=== PATIENT | female | born 1990 | race Caucasian/White ===

== ENCOUNTER 2016-04-04 17:31 | Emergency (ER) | payer MEDICAID ==
--- NOTE | 2016-04-04 21:47 | ED Physician Chart ---
Chief Complaint/HPI - Patient Information Date Seen:: 04/04/16 Time Seen:: 21:40 Chief Complaint:: dysuria, abdominal pain History of Present Illness:: location: lower abdomen quality: sharp pain severity: mild duration: 2-3 days context: pt with onset of lower abdominal pain few days ago. also reports some hematuria. no fever, no flank pain. says this it the first time this has happened. has two children. last child born 2 years ago. mod factors: none assoc s/s: none hx from pt Allergies:: Allergies Allergy/AdvReac Type Severity Reaction Status Date / Time No Known Allergies Allergy Verified 04/04/16 18:10 Vitals:: Vital Signs - 8 hr 04/04/16 17:31 Temp 97.0 F HR 77 RR 16 BP 123/76 O2 Sat % 99 Historian:: Patient Review:: Nurse's Note Reviewed Review of Systems - Review of Systems General/Constitutional: No fever, No chills, No weight loss, No weakness, No diaphoresis, No edema, No loss of appetite Skin: No skin lesions, No rash, No bruising Head: No headache, No light-headedness Eyes: No loss of vision, No pain, No diplopia ENT: No earache, No nasal drainage, No sore throat, No tinnitus Neck: No neck pain, No swelling, No thyromegaly, No stiffness, No mass noted Cardio Vascular: No chest pain, No palpitations, No PND, No orthopnea, No edema Pulmonary: No SOB, No cough, No sputum, No wheezing GI: No nausea, No vomiting, No diarrhea, No pain, No melena, No hematochezia, No constipation, No hematemesis G/U: Dysuria, No frequency, Hematuria Musculoskeletal: No bone or joint pain, No back pain, No muscle pain Endocrine: No polyuria, No polydipsia Psychiatric: No prior psych history, No depression, No anxiety, No suicidal ideation Hematopoietic: No bruising, No lymphadenopathy Allergic/Immuno: No urticaria, No angioedema Neurological: No syncope, No focal symptoms, No weakness, No paresthesia, No headache, No seizure, No dizziness, No confusion, No vertigo Past Medical History - Past Medical History Past Medical History: No significant medical hx Family History: None Social History: Non Smoker, No Alcohol, No Drug Use, , Lives With Parents Surgical History: None Psychiatricy History: None Medication: None Family Medical History - Family Member Mother Other Medical History: thalassemia Physical Exam - Physical Examination General/Constitutional: Awake, Well-developed, well-nourished, Alert, No distress, GCS 15, Non-toxic appearing, Ambulatory Head: Atraumatic Eyes: Lids, conjuctiva normal, PERRL, EOMI Skin: Nl inspection, No rash, No skin lesions, No ecchymosis, Well hydrated, No lymphadenopathy ENMT: External ears, nose nl, Nasal exam nl, Lips, teeth, gums nl Neck: Nontender, Full ROM w/o pain, No JVD, No nuchal rigidity, No mass, No stridor Respiratory: Nl effort/Exclusion, Clear to Auscultation, No Wheeze/Rhonchi/Rales Cardio Vascular: RRR, No murmur, gallop, rubs, NL S1 S2 GI: No tenderness/rebounding/guarding (scant tenderness at suprapubic region, no lesion, no mass), No organomegaly, Normal BS's, Nondistended, No mass/bruits , No McBurney tenderness : No CVA tenderness Extremities: No tenderness or effusion, Full ROM, normal strength in all extremities, No edema, Normal digits & nails Neuro/Psych: Alert/oriented, Normal sensory exam, Normal motor strength, Judgement/insight normal, Mood normal, Normal gait, No focal deficits Misc: normal gait, Normal back, No paraspinal tenderness Labs/Radiology/EKG Results - Radiology Results Results: ultrasound pelvic some fluid in cul de sac, ovaries otherwise normal no abnormal masses identified ER READ ED Septic Shock - . Is Septic Shock (SBP<90, OR Lactate>4 mmol\L) present?: No - <6hrs of presentation: Vital Signs: Vital Signs - 8 hr 04/04/16 17:31 Temp 97.0 F HR 77 RR 16 BP 123/76 O2 Sat % 99 Reassessment (Disposition) - Reassessment Reassessment:: MDM: pt with symptoms of urinary tract infection, no flank pain and no fever. will treat as uncomplicated UTI. ER Course: pt stable during ER stay, no further complaint, no fever. Reassessment Condition:: Unchanged - Diagnosis Diagnosis:: small Ovarian cyst rupture, stable - Aftercare/Follow up Instructions Aftercare/Follow-Up Instructions:: Refer to Discharge Instructions Medication Prescribed:: Bactrim DS one po BID x 3 days - Patient Disposition Discharge/Transfer:: Home Condition at Disposition:: Stable ED Discharge Plan - Patient Disposition Instructions: Urinary Tract Infection, [id number] Additional Instructions: follow up with primary doctor within 1-2 days. take medications as prescribed.
[2016-04-04 22:44] LABS: URINE BILIRUBIN NEGATIVE (NEGATIVE); URINE COLOR YELLOW; URINE GLUCOSE (UA) NEGATIVE (NEGATIVE); URINE KETONE NEGATIVE (NEGATIVE)
[2016-04-04 22:45] LABS: URINE BLOOD NEGATIVE (NEGATIVE); URINE PROTEIN NEGATIVE (NEGATIVE); URINE UROBILINOGEN 0.2 E.U./dL (0.2 - 1.0)
[2016-04-04 22:46] LABS: URINE BACTERIA OCCASIONAL /hpf (NONE SEEN); URINE EPITHELIAL CELLS FEW /lpf (FEW); URINE RBC 0-2 /hpf (0-5); URINE WBC 0-2 /hpf (0-5)
--- NOTE | 2016-04-05 10:03 | Diagnostic Imaging Report ---
Ultrasound pelvis limited HISTORY: Pelvic pain. Vaginal bleeding. Last menstrual period is 03/22/2016. test was not available. COMPARISON: None Technique: Longitudinal and transverse sonographic sector images of the pelvis were obtained transabdominally. Findings: The uterus measures 11.7 x 4.2 x 6.1 cm and demonstrates a heterogeneous echotexture. The endometrial echo complex measures 6 mm. Note exam is limited as patient refused transvaginal images. The right ovary measures 3.9 x 2.3 cm. The left ovary measures 3.0 x 2.7 cm. Small amount of free fluid is noted within the pelvis. IMPRESSION: Limited exam as patient refused transvaginal images Heterogeneous borderline prominent uterus. No discrete fibroids identified. When feasible, transvaginal ultrasound images may provide additional detail and assessment The endometrium measures 6 mm, correlate with menstrual cycle Small amount of free fluid in the pelvis. In the presence of a positive test, ectopic gestation should be excluded.
== END 2016-04-05 01:05 | disposition home or self-care (01) ==
LOC: ER 17:31
DX: N83.209 Unspecified ovarian cyst, unspecified side (principal)
CPT/HCPCS: 76857-TC; 81001-TC; 81025-TC